=== PATIENT | female | born 1980 | race Hispanic/Latino ===

== ENCOUNTER 2021-03-18 12:04 | Outpatient (CLI) | payer OTHER ==
[2021-03-18 13:32] LABS: Mean Corpuscular HGB CONC 35.1 g/dL (32.0-36.0); Mean Corpuscular Hemoglobin 31.6 pg (27.0-33.0); Mean Corpuscular Volume 89.8 fl (81.6-98.3); Mean Platelet Volume 10.4 fl (7.4-10.4); Platelet Count 235 10x3/uL (150-450); RBC Distribution Width 12.8 % (11.5-14.5); Red Blood Cell (RBC) Count 4.12 10x6/uL (3.90-5.03); White Blood Cell (WBC) Count 5.5 10x3/uL (3.5-10.5)
[2021-03-18 13:39] LABS: BHCG - Serum Negative (NEGATIVE); Pregs Control Background? CLEAR/WHITE (CLR/WHITE); Pregs Control Bar Appear? YES (CONTROL BAR)
[2021-03-18 23:20] LABS: SARS-CoV-2 PCR by NAA Not Detected (NotDetected)
== END 2021-03-18 12:05 | disposition home or self-care (01) ==
LOC: CSHLAB 12:04
PROVIDERS: ATTEND Obstetrics & Gynecology
DX: Z01.812 Encounter for preprocedural laboratory examination (principal); Z20.822 Contact with and (suspected) exposure to COVID-19; N92.0 Excessive and frequent menstruation with regular cycle; N94.6 Dysmenorrhea, unspecified
CPT/HCPCS: 84703; 85027; U0003; U0005

== ENCOUNTER 2021-03-23 05:43 | Day surgery (SDC) | payer OTHER ==
[2021-03-21 12:48] VITALS: BMI 37.8
[2021-03-23] MEDS ORDERED: PROPOFOL 20 ML ONE (06:30)
[2021-03-23] MEDS ORDERED: Fentanyl 100 MCG/2 ML VIAL ONE (06:31)
[2021-03-23] MEDS ORDERED: Dexamethasone 20 MG/5 ML VIAL ONE (06:31)
[2021-03-23] MEDS ORDERED: Lidocaine 2% PF 5 ML VIAL ONE (06:31)
[2021-03-23] MEDS ORDERED: Lidocaine 1% MPF 2 ML VIAL ONE (06:31)
[2021-03-23] MEDS ORDERED: Ondansetron PF 4 MG/2 ML Vial ONE (06:31)
[2021-03-23] MEDS ORDERED: Famotidine/PF 20 mg/2ml Vial ONE (06:41)
[2021-03-23] MEDS ORDERED: Midazolam HCl 2 mg/2 ml Vial ONE (06:41)
[2021-03-23] MEDS ORDERED: Ketorolac Tromethamine 30 MG/ML VIAL ONE (09:03)
[2021-03-23] MEDS ORDERED: HYDROcodone/Acetaminophen 5/325 mg Tablet ONE (09:38)
== END 2021-03-23 10:10 | disposition home or self-care (01) ==
LOC: CSHSDC 05:43
PROVIDERS: ATTEND Obstetrics & Gynecology
PROC: 0U5B8ZZ Destruction of Endometrium, Via Natural or Artificial Opening Endoscopic (ICD-10-PCS; principal; 2021-03-23)
DX: N92.0 Excessive and frequent menstruation with regular cycle (principal); N94.6 Dysmenorrhea, unspecified; D25.9 Leiomyoma of uterus, unspecified; E03.9 Hypothyroidism, unspecified; K21.9 Gastro-esophageal reflux disease without esophagitis; G43.909 Migraine, unspecified, not intractable, without status migrainosus; Z79.899 Other long term (current) drug therapy; Z98.51 Tubal ligation status; Z98.84 Bariatric surgery status
CPT/HCPCS: J0690; J1100; J1885; J2001; J2250; J2405; J2704; J3010; L8699; S0028